=== PATIENT | female | born 1995 | race Two or more races ===

== ENCOUNTER 2016-12-05 19:53 | Emergency (ER) | payer BC ==
[~2016-12-05 19:53] MED LIST: ALBUTEROL17 GM INH; BENADRYL25 M3 PO; BLOOD PRESSURE; CLEOCIN HCL300 MG PO; COLACE100 MG PO; DOLACET 5/500 C1 CAP PO; FEROSUL325 M1 PO; FIORICET1 TA1 PO; FLAGYL500 MG PO; FOLIC ACID0.8 MG PO; IBUPROFEN800 M1 PO; IBUPROFEN800 MG PO; IRON1 TAB; IRON325 M1 PO; KEFLEX500 M2 PO; KEFLEX500 MG/CA1 NG; LACRI-LUBE S.O3.5 G1 OP; MOTRIN600 MG PO; MOTRIN800 MG PO; MUCINEX50 MG PO; NAPROSYN500 M1 PO; NO HOME MEDICATION XX; NO MEDS; NORCO 5-325 TA1 EACH PO; NORCO 5/325 TAB1 TAB PO; NORCO 5/3251 TA1 PO; NORCO 5/3251 TAB PO; PERCOCET 5/3251 TAB PO; PREDNISONE20 MG PO; PRENA1 CHEW TA1.4 M1 PO; PRENATAL1 EACH; PRENATAL1 EACH PO; PROCARDIA10 M1 PO; SURFAK240 M2 PO; TRANDATE100 MG/TAB PO; TYLENOL WITH C1 EACH PO; VALTREX1000 MG PO; VICODIN 5/500 T1 TAB PO; VISTARIL25 M1 PO; VISTARIL50 MG PO; ZITHROMAX250 MG PO
[2016-12-05 20:17] LABS: URINE APPEARANCE CLOUDY; URINE BILIRUBIN NEGATIVE (NEG); URINE BLOOD LARGE (NEG); URINE COLOR YELLOW; URINE GLUCOSE (UA) NEGATIVE (NEG); URINE KETONE SMALL (NEG); URINE LEUKOCYTE ESTERASE POSITIVE (NEG); URINE NITRITE NEGATIVE (NEG); URINE PROTEIN MODERATE (NEG)
[2016-12-05 20:32] LABS: URINE AMORPHOUS 1+; URINE BACTERIA 1+; URINE RBC RARE /[HPF] (0-5); URINE WBC 20-25 /[HPF] (0-5)
[2016-12-05 20:49] LABS: BASO % 0.3 % (0-2); EOS % 0.9 % (0-7); EOSINOPHIL ABSOLUTE COUNT 0.1 tho/cmm (0.0-0.7); HCT-HEMATOCRIT 44.3 % (34.0-49.0); IMMATURE GRANULOCYTES ABSOLUTE 0.02 tho/cmm (0-0.03); IMMATURE GRANULOCYTES PERCENT 0.2 % (0-0.3); LYMPH % 43.5 % (20-45); LYMPH ABSOLUTE COUNT 4.2 tho/cmm (0.8-4.5); MCH (MEAN CORPUSCULAR HGB) 30.2 pg (28.0-32.0); MCHC MEAN CORPUSCULAR HGB CONC 33.9 % (32.0-36.0); MCV (MEAN CELL VOLUME) 89.1 fl (82.0-96.0); MEAN PLATELET VOLUME 10.9 cmc (9.4-12.4); MONO % 5.3 % (0-12); MONOCYTE ABSOLUTE COUNT 0.5 tho/cmm (0.0-1.2); NEUTROPHIL ABSOLUTE COUNT 4.8 tho/cmm (1.6-8.0); NEUTROPHIL-AUTOMATED 4.8 tho/cmm (1.6-8.0); NEUTROPHILS % 49.8 % (40-80); PLATELET COUNT 239 tho/cmm (150-450); RED BLOOD COUNT 4.97 mil/cmm (4.00-5.20); RED CELL DISTRIBUTION WIDTH 13.5 % (12.4-16.4); WHITE BLOOD COUNT 9.7 tho/cmm (4.0-10.0)
[2016-12-05 21:02] LABS: ANION GAP 12 mmol/L (0-20); BLOOD UREA NITROGEN 8 mg/dl (6-24); CALCIUM 9.7 mg/dl (8.5-10.5); CARBON DIOXIDE-VENOUS 27 mmol/L (22-32); CHLORIDE 105 mmol/l (96-110); CREATININE 0.79 mg/dl (0.50-1.10); GLUCOSE 82 mg/dL (70-110); POTASSIUM 4.1 mmol/L (3.7-5.1); SODIUM 140 mmol/L (135-145); eGFR VALUE FOR BLACK >90 mL/Min
[2016-12-05] MEDS ORDERED: PYRIDIUM200 M2 PO (22:39)
[2016-12-05] MEDS ORDERED: NORCO 5/3251 TAB PO (22:39)
[2016-12-05] MEDS ORDERED: MACROBID 100 M100 M1 PO (22:39)
[2017-05-08] MEDS ORDERED: KEFLEX500 M4 PO (20:09)
[2017-05-08] MEDS ORDERED: ZOFRAN4 M2 PO (20:15)
== END 2016-12-05 22:52 ==
LOC: EDMED 19:53
PROVIDERS: Emergency Medicine
DX: N83.202 Unspecified ovarian cyst, left side (principal); N39.0 Urinary tract infection, site not specified; Z90.89 Acquired absence of other organs
CPT/HCPCS: J1170; J1885; J2405